=== PATIENT | female | born 1950 | race Caucasian/White ===

== ENCOUNTER 2021-11-15 16:18 | Emergency (ER) | payer OTHER ==
[2021-11-15 16:52] VITALS: BMI 25.4
[2021-11-15 18:57] VITALS: BP 120/68; PULSE 74; TEMP 98.4
[2021-11-15] MEDS ORDERED: ONDANSETRON 4 MG/2 ML VIAL ONE (19:32)
== END 2021-11-15 19:00 | disposition home or self-care (01) ==
LOC: JER 16:18
DX: R51.9 Headache, unspecified (principal)
CPT/HCPCS: 70450-TC; 99284-25